=== PATIENT | female | born 1940 | race Caucasian/White ===

== ENCOUNTER → 2018-12-24 | Outpatient (CLI) | payer MEDICARE ==
--- NOTE | 2018-12-24 16:01 | CT ---
EXAMINATION TYPE: CT wrist LT wo con DATE OF EXAM: 12/24/2018 COMPARISON: None HISTORY: Left wrist fx CT DLP: [address] of the left wrist with reconstruction imaging. TECHNIQUE: Unenhanced CT of the left wrist was performed with bone and soft tissue window settings anderson bmitted in the axial coronal and sagittal planes. At a separate workstation [id number] TR imaging was obtai angel. FINDINGS: Comminuted distal radial fracture with intra-articular extension. Palmar displacement of ma billy fracture component of 4.6 mm. Fracture of the ulnar styloid process. No additional fractures iden tified. Soft tissue edema and deformity noted. Overlying cast material is noted to be in place. IMPRESSION: 1. Comminuted distal radial fracture with ulnar styloid component.
== END | disposition home or self-care (01) ==
LOC: RADCTMAIN 15:20
PROVIDERS: ATTEND Orthopaedic Surgery
DX: S52.592A Other fractures of lower end of left radius, initial encounter for closed fracture (principal)